=== PATIENT | male | born 1935 | race Caucasian/White ===

== ENCOUNTER 2023-03-19 18:23 | Observation (INO) | payer MEDICARE, OTHER ==
[2023-03-19 19:07] LABS: BASOPHILS ABSOLUTE AUTO 0.02 K/uL (0.00-0.20); BASOPHILS PERCENT AUTO 0.2 % (0.0-2.0); HEMATOCRIT 48.7 % (39.0-49.0); HEMOGLOBIN 14.6 g/dL (13.1-16.8); LYMPHOCYTES PERCENT AUTO 13.5 % (10.0-50.0); MEAN CORPUSCULAR HEMOGLOBIN 32.2 pg (28.2-33.3); MEAN CORPUSCULAR VOLUME 107.5 fL (84.0-98.0); MONOCYTES ABSOLUTE AUTO 0.95 K/uL (0.00-1.00); MONOCYTES PERCENT AUTO 7.1 % (2.0-14.0); NEUTROPHILS ABSOLUTE AUTO 10.16 K/uL (1.40-7.00); NEUTROPHILS PERCENT AUTO 76.2 % (45.0-80.0); PLATELET COUNT,PLT 160 K/uL (150-350); RED BLOOD CELL COUNT 4.53 M/uL (4.33-5.41); WHITE BLOOD CELL COUNT,WBC 13.3 K/uL (4.0-10.2)
[2023-03-19] MEDS ORDERED: Sodium Chloride 0.9% 10 ML Syringe FLUSH PRN (19:10)
[2023-03-19] MEDS ORDERED: Haloperidol Lactate 5 MG/ML SDV IM ONE (19:11)
[2023-03-19] MEDS ORDERED: LORazepam 2 MG/ML SDV IM ONE (19:11)
[2023-03-19] MEDS ORDERED: Sodium Chloride 0.9% 250 ML IV SCH (19:15)
[2023-03-19] MEDS ORDERED: Sodium Chloride 0.9% 500 ML IV SCH (19:47)
[2023-03-19 19:52] LABS: ALBUMIN 2.8 g/dL (3.4-5.0); BILIRUBIN TOTAL 0.3 mg/dL (0.2-1.0); CALCIUM 8.6 mg/dL (8.5-10.1); CARBON DIOXIDE,CO2 23.9 mmol/L (21.0-32.0); PROTEIN TOTAL,TP 6.7 g/dL (6.4-8.2)
[2023-03-19 19:54] LABS: CREATININE 5.18 mg/dL (0.51-1.17); EST CRCL DRUG DOSING (CG) 8.41 mL/min; POTASSIUM,K 4.5 mmol/L (3.5-5.1)
[2023-03-19 19:55] LABS: ANION GAP 18.6 meq/L (7-15)
[2023-03-19 20:39] LABS: APPEARANCE,URINE CLOUDY; COLOR,URINE YELLOW; GLUCOSE,URINE NEGATIVE (NEGATIVE); PH,URINE 8.5 (5.0-9.0); PROTEIN,URINE >=300 mg/dL (NEGATIVE)
[2023-03-19 20:40] LABS: BILIRUBIN,URINE NEGATIVE (NEGATIVE); KETONES,URINE NEGATIVE (NEGATIVE); OCCULT BLOOD,URINE LARGE (NEGATIVE)
[2023-03-19 20:41] LABS: LEUKOCYTE ESTERASE,URINE LARGE (NEGATIVE); NITRITE,URINE NEGATIVE (NEGATIVE); UROBILINOGEN,URINE 0.2 E.U./dL (0.2-1.0)
[2023-03-19 20:42] LABS: BACTERIA,URINE MANY /HPF (NONE TO FEW); EPITHELIAL CELLS,URINE RARE /LPF; RBC,URINE 40-50 /HPF; WBC,URINE >100 /HPF
[2023-03-19] MEDS ORDERED: Ondansetron 4 MG/2 ML SDV IVPUSH PRN (21:52)
[2023-03-19] MEDS ORDERED: cefTRIAXone 1 GM in Sodium Chloride 0.9% 100 ML IV SCH (22:00)
[2023-03-19] MEDS ORDERED: Sodium Chloride 0.9% 1,000 ML IV SCH (22:00)
[2023-03-19] MEDS ORDERED: LORazepam 2 MG/ML SDV IVPUSH PRN (23:00)
[2023-03-20] MEDS ORDERED: Haloperidol Lactate 5 MG/ML SDV IM PRN (03:00)
[2023-03-20 08:26] LABS: CALCIUM 8.2 mg/dL (8.5-10.1); CARBON DIOXIDE,CO2 25.4 mmol/L (21.0-32.0); EST CRCL DRUG DOSING (CG) 9.6 mL/min; POTASSIUM,K 4.3 mmol/L (3.5-5.1)
[2023-03-20 08:29] LABS: ANION GAP 14.9 meq/L (7-15)
[2023-03-20 08:30] LABS: CREATININE 4.54 mg/dL (0.51-1.17)
== END 2023-03-20 13:40 ==
LOC: LL.ED 18:23 → UNDOADMOB 21:15 → LL.MS 21:15
PROVIDERS: ADMIT Emergency Medicine; ATTEND Emergency Medicine
DX: R46.89 Other symptoms and signs involving appearance and behavior (principal); E86.0 Dehydration; E87.0 Hyperosmolality and hypernatremia; N39.0 Urinary tract infection, site not specified; N19 Unspecified kidney failure; E78.89 Other lipoprotein metabolism disorders; N40.0 Benign prostatic hyperplasia without lower urinary tract symptoms; E87.8 Other disorders of electrolyte and fluid balance, not elsewhere classified; F41.9 Anxiety disorder, unspecified; Z79.899 Other long term (current) drug therapy; Z88.2 Allergy status to sulfonamides; Z91.041 Radiographic dye allergy status
CPT/HCPCS: 36415; 51702; 80048; 80053; 81001; 83605; 85025; 87086; 87088; 87186; 96365; 96372; 96375; 99285-25; G0378; J0696; J1630; J2060; J3490; J7030; J7040; J7050